=== PATIENT | male | born 2000 ===

== ENCOUNTER 2019-10-14 12:24 | Emergency (ER) | payer SELFPAY ==
--- NOTE | 2019-10-14 12:33 | Event Note ---
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 Further treatment and workup at subsequent clinical providers discretion. Patient/guardian urged not to elope from the ED as their condition may be serious if not clinically assessed and managed. Initial orders include: XR abd with chest
--- NOTE | 2019-10-14 12:52 | Emergency Department Report ---
ED Trauma HPI - General Chief Complaint: Multiple Trauma Stated Complaint: BOARD FELL ON CHEST/STOMACH Time Seen by Provider: 10/14/19 12:44 Source: patient, RN notes reviewed Exam Limitations: no limitations - History of Present Illness Initial Comments: This is a 19-year-old male who presents to the emergency room with epigastric pain and shortness of breath. Patient states he was going up a ladder while at work when a 20 pound cemented sheet slipped from his hands landing into chest 30 minutes [employer]. Patient states he feel short of breath and pressure across chest. He reports increased shortness of breath with inhalation and when he is sitting up. He denies loss of consciousness, nausea or vomiting, Occurred: just prior to arrival Severity: severe Pain Location: chest, abdomen Pain Scale (1-10): 8 Method of Injury: direct blow Modifying Factors: improves with: movement Loss of Consciousness: no loss of consciousness Associated Symptoms (Fall): abdominal pain, chest pain, shortness of breath. denies: confusion, dizziness, headache, lightheadedness, muscle spasms, nausea/vomiting, neck pain, seizures, slurred speech, trouble walking, vision changes Allergies/Adverse Reactions: Allergies No Known Allergies Allergy (Unverified 10/14/19 12:29) Home Medications: Ambulatory Orders traMADoL [Ultram 50 MG tab] 50 mg PO Q6HR PRN #12 tablet 10/14/19 ED Review of Systems ROS: Stated complaint: BOARD FELL ON CHEST/STOMACH Other details as noted in HPI Constitutional: denies: chills, fever ENT: denies: ear pain, throat pain Respiratory: denies: cough, shortness of breath, wheezing Cardiovascular: chest pain. denies: palpitations Gastrointestinal: abdominal pain. denies: nausea, diarrhea Skin: other (abrasion to epigastric and left lower quadrant). denies: rash, lesions Neurological: denies: headache, weakness, paresthesias Psychiatric: denies: anxiety, depression ED Past Medical Hx - Past Medical History Previous Medical History?: No - Surgical History Past Surgical History?: No - Social History Smoking Status: Never Smoker Substance Use Type: None - Medications Home Medications: Home Medications Medication Instructions Recorded Confirmed Last Taken Type traMADoL [Ultram 50 MG tab] 50 mg PO Q6HR PRN #12 tablet 10/14/19 Unknown Rx ED Physical Exam - General Limitations: No Limitations General appearance: alert, in no apparent distress - ENT ENT exam: Present: mucous membranes moist - Respiratory Respiratory exam: Present: normal lung sounds bilaterally. Absent: respiratory distress, wheezes, rales, rhonchi, stridor - Cardiovascular Cardiovascular Exam: Present: regular rate, normal rhythm. Absent: systolic murmur, diastolic murmur, rubs, gallop - GI/Abdominal GI/Abdominal exam: Present: soft, tenderness (TTP along epigastric region, erythema, no swelling), normal bowel sounds. Absent: distended, guarding, rebound, rigid, organomegaly, mass - Neurological Exam Neurological exam: Present: alert, oriented X3, normal gait - Psychiatric Psychiatric exam: Present: normal affect, normal mood - Skin Skin exam: Present: warm, dry, intact, normal color, abrasion (2 cm abrasion to LLQ, tenderness). Absent: rash ED Course Vital Signs 10/14/19 10/14/19 10/14/19 12:31 12:53 15:38 Temperature 98.1 F Pulse Rate 61 60 65 Respiratory 14 20 15 Rate Blood Pressure 123/44 Blood Pressure 125/88 118/73 [Left] O2 Sat by Pulse 99 100 98 Oximetry ED Medical Decision Making - Radiology Data Radiology results: report reviewed ABDOMEN 3 VIEW(S) INDICATION: hit with 20 lbs in the epigastric/chest region. COMPARISON: None available. FINDINGS: Bowel gas pattern: No significant abnormality. Free air: None seen. Stones: None seen. Chest: No acute findings. Additional Findings: No additional significant findings. IMPRESSION: No significant abnormality of the abdomen. - Medical Decision Making Patient seen by this provider. Vitals are stable. There are abrasions to left lower quadrant with intact skin and no signs of infection, erythema along epigastric abdomen and TTP, no swelling. Given analgesics while in the ER. A x-ray of chest and abdomen was obtained with no acute findings. Patient reports improved pain. At this time there are no signs of pneumothorax, bleeding, or rib fractures. Start tramadol for pain. Referral to PCP for follow. Instructed to return to the ER with worsening symptoms. Patient discharged home stable. Critical care attestation.: If time is entered above; I have spent that time in minutes in the direct care of this critically ill patient, excluding procedure time. ED Disposition Clinical Impression: Contusion Qualifiers: Encounter type: initial encounter Contusion area: abdominal wall Qualified Code(s): S30.1XXA - Contusion of abdominal wall, initial encounter Abdominal pain Qualifiers: Abdominal location: epigastric Qualified Code(s): R10.13 - Epigastric pain Disposition: TO HOME OR SELFCARE Is pt being admited?: No Condition: Stable Instructions: Contusion in Adults (ED), Abdominal Pain (ED) Additional Instructions: Follow up with primary care doctor in 3-5 days. Take pain medication every 6-8 hours as needed for pain. It is okay to take Tylenol or ibuprofen for breakthrough pain. If you noticed swelling, shortness of breath, chest pain, or difficulty breathing with a follow-up with an emergency room. Prescriptions: traMADoL [Ultram 50 MG tab] 50 mg PO Q6HR PRN #12 tablet PRN Reason: Pain Referrals: [facility] [Outside] - 3-5 Days [facility] [Outside] - 3-5 Days [facility] [Outside] - 3-5 Days Forms: Work/School Release Form(ED) Time of Disposition: 14:48
--- NOTE | 2019-10-14 13:27 | XRay Report ---
ABDOMEN 3 VIEW(S) INDICATION: hit with 20 lbs in the epigastric/chest region. COMPARISON: None available. FINDINGS: Bowel gas pattern: No significant abnormality. Free air: None seen. Stones: None seen. Chest: No acute findings. Additional Findings: No additional significant findings. IMPRESSION: No significant abnormality of the abdomen. Signer Name: Aime Phillip MD Signed: 10/14/2019 1:23 PM Workstation Name: [id number]
[2019-10-14] MEDS ORDERED: IBUPROFEN 800 MG TAB PO ONE (14:55)
[2019-10-14 15:38] VITALS: BP 118/73
== END 2019-10-14 15:39 | disposition home or self-care (01) ==
LOC: ED 12:24
DX: S30.1XXA Contusion of abdominal wall, initial encounter (principal); Z79.899 Other long term (current) drug therapy; W11.XXXA Fall on and from ladder, initial encounter; Y93.89 Activity, other specified; Y92.89 Other specified places as the place of occurrence of the external cause; Y99.0 Civilian activity done for income or pay
CPT/HCPCS: 74022